=== PATIENT | male | born 1975 | race Caucasian/White ===

== ENCOUNTER 2017-04-04 11:41 | Emergency (ER) | payer OTHER ==
--- NOTE | ~2017-04-04 | CR142 ---
[facility]. [facility] A Service of [facility] & [facility] RADIOLOGY TEXT RESULTS PATIENT: LEEANN MANCERA JR LOCATION: SED : 71 UNIT #: [id number] AGE: [address]: LUNA TREVINO SEX: M ORDER DR: [id number] [place] [id number] E MR#: [id number] Acc #: [id number] NAME: LEEANN MANCERA JR : 1975 SEX: M STUDY DATE/TIME: 04/04/2017 12:09 UNIT: SED ROOM: STUDY DESCRIPTION: CR Hand Min 3 Views Rt Attending Physician: Luna Trevino Aprn Ordering Physician: Ricardo Sidhu M.D. Primary Care Physician: Primary Care Physician No MEDICAL IMAGING REPORT This report is preliminary unless electronic signature is present. EXAM Right hand INDICATION Right hand pain after smashing hand between two lawnmowers today. FINDINGS Three views of the right hand were obtained. No fracture is identified. The bones are normal and there is no foreign body. IMPRESSION Loyda right hand. Dictated by... Jluis Alvarez M.D. THIS IS AN ELECTRONICALLY VERIFIED REPORT Jluis Alvarez M.D. at 04/05/2017 7:26 AM Amy TD: 04/04/2017 21:20 JOB #: [id number] MEDICAL IMAGING REPORT Page 1 of 1
[~2017-04-04 11:41] MED LIST: ACETAMINOPHEN; ALBUTEROL17 GM INH; CIPRO PO; CLEOCIN HCL300 M1 PO; FLEXERIL10 MG PO; HYDROCODON-ACE1 EACH PO; IBUPROFEN800 MG PO; LORTAB 5/500 TA1 TA1 PO; MEDROL4 MG/DOSE- PO; NORFLEX100 M1 PO; ROBITUSSIN A-C10 ML PO; VIBRAMYCIN100 M1 PO; VOLTAREN50 MG PO
[2017-04-04] MEDS ORDERED: AMOXICILLIN875 MG (11:47)
== END 2017-04-04 12:45 | disposition home or self-care (01) ==
LOC: SED 11:41
DX: S67.192A Crushing injury of right middle finger, initial encounter (principal); S61.202A Unspecified open wound of right middle finger without damage to nail, initial encounter; W23.0XXA Caught, crushed, jammed, or pinched between moving objects, initial encounter; Y92.009 Unspecified place in unspecified non-institutional (private) residence as the place of occurrence of the external cause
CPT/HCPCS: 73130; 99283

== ENCOUNTER 2017-05-22 20:06 | Emergency (ER) | payer OTHER ==
[~2017-05-22] VITALS: Ht 177.8 cm; Wt 81.6 kg
--- NOTE | ~2017-05-22 | CR142 ---
[facility]. [facility] A Service of [facility] & [facility] RADIOLOGY TEXT RESULTS PATIENT: LEEANN MANCERA JR LOCATION: SED : 71 UNIT #: [id number] AGE: [address]: Sudhakar Calloway DO SEX: M ORDER DR: [id number] [place] [id number] E MR#: [id number] Acc #: [id number] NAME: LEEANN MANCERA JR : 1975 SEX: M STUDY DATE/TIME: 05/22/2017 20:53 UNIT: SED ROOM: STUDY DESCRIPTION: CR Hand Min 3 Views Rt Attending Physician: Sudhakar Calloway Ordering Physician: Elio Elena Primary Care Physician: Jackie Primary Care Physician MEDICAL IMAGING REPORT This report is preliminary unless electronic signature is present. EXAM Right hand series dated 05/21/2017 HISTORY Patient got injured today with laceration, pain, and swelling along the posterior aspect of the right hand overlying the second digit. FINDINGS 3 views of the right hand were obtained. No acute displaced fracture, dislocation, or destructive bony mass is seen. Surrounding soft tissues do not demonstrate any significant abnormality. Dictated by... Beata Garza M.D. THIS IS AN ELECTRONICALLY VERIFIED REPORT Beata Garza M.D. at 05/24/2017 7:32 PM CPR/aa TD: 05/23/2017 10:42 JOB #: [id number] MEDICAL IMAGING REPORT Page 1 of 1
[~2017-05-22 20:06] MED LIST changes: +AMOXICILLIN875 MG
== END 2017-05-22 23:45 | disposition home or self-care (01) ==
LOC: SED 20:06
DX: S56.421A Laceration of extensor muscle, fascia and tendon of right index finger at forearm level, initial encounter (principal); F17.210 Nicotine dependence, cigarettes, uncomplicated; Z88.0 Allergy status to penicillin; W22.8XXA Striking against or struck by other objects, initial encounter; Y92.9 Unspecified place or not applicable
CPT/HCPCS: 12001; 73130; 99283